=== PATIENT | female | born 1980 | race Hispanic/Latino ===

== ENCOUNTER 2016-12-26 14:39 | Outpatient (CLI) | payer OTHER ==
--- NOTE | 2016-12-26 16:23 | ULT ---
OBSTETRICAL ULTRASOUND 12/26/16 INDICATION: Size and dates. COMPARISON: None. FINDINGS: There is a single live intrauterine gestation in variable presentation. Placenta is anterior in loca tion without evidence of previa. BRUCE is noted at 14 cm. The heard, cerebellum, cisterna magnum, lateral ventricle, and four chamber heart, stomach, ki dneys, cord insertion, bladder, spine, lips and nose, three vessel cord and visualized extremities a ppear within normal limits. Cardiac activity is noted at 142 beats per minute. Biparietal diameter is 6.1 cm giving estimated gestational age of 24 weeks, 6 days. The head circumf erence is 22.66 cm, giving an estimated gestational age of 24 weeks, 5 days. The abdominal circumfer ence is 20.06 cm, giving an estimated gestational age of 24 weeks, 5 days. Femur length was 4.43 cm, given an estimated gestational age of 24 weeks, 4 days. The average gestational age by ultrasound i s 24 weeks, 2 days with estimated due date of 04/15/17. This does correspond to clinical dates provide d. The estimated weight is 1 lb. 9 oz, or 719 grams. IMPRESSION: 1. Single live intrauterine gestation with size and dates as above. 2. survey appeared within normal limits. POS: [facility]
== END 2016-12-26 14:40 | disposition home or self-care (01) ==
LOC: NAV ULT 14:39
PROVIDERS: ATTEND Family Medicine
DX: O09.522 Supervision of elderly multigravida, second trimester (principal); Z3A.24 24 weeks gestation of pregnancy
CPT/HCPCS: 76805